=== PATIENT | female | born 1960 | race Asian ===

== ENCOUNTER 2019-09-12 18:18 | Emergency (ER) | payer OTHER, SELFPAY ==
[2019-09-12 18:26] VITALS: BP 145/84; PULSE 77; RESP 18; TEMP 36.9; O2SAT 99
--- NOTE | 2019-09-12 18:27 | DI.RAD.S_ITS ---
PROCEDURE: XR KNEE LT 3V INDICATIONS: knee pain, swelling TECHNIQUE: 3 views of the knee were acquired. COMPARISON: None. FINDINGS: Bones: No fractures or dislocations. No suspicious bony lesions. There is mild medial femorotibial joint space narrowing seen, with associated remodeling changes including subchondral sclerosis and osteophyte formation along the jointline. Osteophyte formation can be seen along the margins of the patella. Soft tissues: There is a small joint effusion. No suspicious soft tissue calcifications. IMPRESSION: Small joint effusion. No focal bony abnormality is seen. If there is strong clinical suspicion for internal derangement of this joint, please consider a scheduled MRI for further evaluation (assuming that there is no contraindication to MRI). Dictated by: Martin Parmar M.D. on 09/12/2019 at 17:49 Approved by: Martin Parmar M.D. on 09/12/2019 at 17:49
--- NOTE | 2019-09-12 18:31 | ED_ITS ---
HPI - Extremity Problem General Chief complaint: Extremity Problem,Nontraumatic Stated complaint: left knee pain Time Seen by Provider: 09/12/19 18:19 Source: patient Mode of arrival: Family Vehicle Limitations: no limitations History of Present Illness HPI Narrative: 58-year-old female nonsmoker with noncontributory medical history presents by herself with a chief complaint of ongoing left knee pain since Saturday. She denies any specific injury such as twisting or falling. She denies any overuse scenario. She denies any fever or chills nor redness. She denies any ankle or hip pain. She denies any history of the same. Patient denies any numbness, tingling or weakness MD Complaint: extremity pain and joint swelling Onset (ago): day(s) Pain Consistency: constant Location: left Quality: aching Radiation: none Relieving factors: rest Exacerbating factors: weight bearing and walking Associated symptoms: denies other symptoms Related Data Allergies Allergy/AdvReac Type Severity Reaction Status Date / Time No Known Drug Allergies Allergy Verified 09/12/19 18:30 Review of Systems Constitutional Constitutional: Denies chills, Denies fatigue, Denies fever(s), Denies frequent falls, Denies lethargy and Denies weakness Eyes Eyes: Denies change in vision, Denies eye discharge, Denies irritation and Denies loss of vision ENT Ears, Nose, Mouth, and Throat: Denies change in voice, Denies dizziness, Denies neck pain, Denies sore throat and Denies throat swelling Cardiovascular Cardiovascular: Denies chest pain, Denies irregular heart rhythm, Denies lightheadedness, Denies palpitations, Denies dyspnea, Denies dyspnea on exertion and Denies orthopnea Respiratory Respiratory: Denies cough, Denies dyspnea, Denies dyspnea on exertion and Denies wheezing Gastrointestinal Gastrointestinal: Denies abdominal pain, Denies change in bowel habits, Denies diarrhea, Denies nausea and Denies vomiting Genitourinary Genitourinary: Denies hematuria, Denies flank pain, Denies urinary incontinence and Denies urinary urgency Musculoskeletal Musculoskeletal: Denies back pain, Reports limited range of motion, Denies muscle weakness, Denies neck pain, Denies numbness and Denies tingling Integumentary/Breasts Skin/Breast: Denies pruritus, Denies erythema, Denies rash and Denies wounds Neurologic Neurologic: Denies behavioral changes, Denies confusion, Denies dizziness, Denies frequent falls, Denies loss of vision, Denies numbness, Denies tingling and Denies weakness Psychiatric Psychiatric: Denies anxiety, Denies behavioral changes, Denies confusion, Denies depression, Denies homicidal ideation and Denies suicidal ideation Endocrine Endocrine: Denies fatigue, Denies flushing and Denies palpitations Hematologic/Lymphatic Hematologic/Lymphatic: Denies easy bruising Allergic/Immunologic Allergic/Immunologic: Denies urticaria, Denies throat swelling and Denies wheezing Patient History Social History Smoking Status: Never smoker alcohol intake frequency: 0-2 drinks per day Substance Use Type: does not use Exam Narrative Exam Narrative: GEN: AOx3 and in mild distress, 58-year-old female appears stated age EYES: Pupils are equal, round, and reactive to light and accommodation. Extraoccular muscles are intact bilaterally. There is no subconjunctival hemorrhage or exudate. CHEST: Lungs are clear to auscultation bilaterally and free of wheezes, rales, or rhonchi. Heart rate is regular rhythm, there are no murmurs, clicks, rubs, or gallops. There is no chest wall tenderness. ABD: Abdomen is soft and nontender. There is no guarding or rebound. Bowel sounds are normal in all 4 quadrants. There is no mass or organomegaly. EXT: Full but painful range of motion of left knee. Small effusion, no redness, warmth. No pain with passive range of motion. No bony point tenderness. No numbness, tingling or weakness SKIN: Warm, pink, and dry. No erythema or rash Initial Vital Signs Initial Vital Signs: Vital Signs Temperature 98.4 F 09/12/19 18:26 Pulse Rate 77 09/12/19 18:26 Respiratory Rate 18 09/12/19 18:26 Blood Pressure 145/84 H 09/12/19 18:26 Pulse Oximetry 99 09/12/19 18:26 Procedures Orthopedic Splinting/Casting Injury #1: Side: left Lower Extremity Immobilizer: Chris wrap Post splinting neuro exam: intact Post splinting vascular exam: intact Placed by: Nursing Course Orders Ordered: ED Orders 09/12/19 18:27 XR knee LT 3V Stat Vital Signs Vital signs: Vital Signs - 8 hr 09/12/19 18:26 Temperature 98.4 F Pulse Rate 77 Respiratory Rate 18 Blood Pressure 145/84 H Pulse Oximetry 99 MDM - Extremity (Nontraumatic) Imaging Data Knee Xray: Attestation: I personally reviewed and interpreted this imaging study as follows: My impression: No tom abnormality Radiologist's impression: [address] [address] XRay Report Signed Patient: Louisa Rivera#: [id number] : 1960Acct:[id number] Age/Sex: 58 / FDate of Service: 09/12/19 Loc: ED Accession Number: [id number] Procedure: XR knee LT 3V Ordering Provider: Prem Goodson D.O. PROCEDURE: XR KNEE LT 3V INDICATIONS: knee pain, swelling TECHNIQUE: 3 views of the knee were acquired. COMPARISON: None. FINDINGS: Bones: No fractures or dislocations. No suspicious bony lesions. There is mild medial femorotibial joint space narrowing seen, with associated remodeling changes including subchondral sclerosis and osteophyte formation along the jointline. Osteophyte formation can be seen along the margins of the patella. Soft tissues: There is a small joint effusion. No suspicious soft tissue calcifications. IMPRESSION: Small joint effusion. No focal bony abnormality is seen. If there is strong clinical suspicion for internal derangement of this joint, please consider a scheduled MRI for further evaluation (assuming that there is no contraindication to MRI). Dictated by: Martin Parmar M.D. on 09/12/2019 at 17:49 Approved by: Martin Parmar M.D. on 09/12/2019 at 17:49 Discharge Plan Departure Patient Disposition: Home Clinical Impression: Acute knee pain Qualifiers: Laterality: left Qualified Code(s): M25.562 - Pain in left knee Discharge Date/Time: 09/12/19 19:28 Instructions: DI for Knee Pain Activity Restrictions/Additional Instructions: *You have been diagnosed with [acute left knee pain] *What to do: *Take medications as directed: Anti-inflammatories such as ibuprofen or Naprosyn and Tylenol for pain *Follow up with your primary care provider in 2-3 days, call for an appointment. Let them know you were seen in the Emergency Department and that we ask that you be seen in follow up *Return to ER if you should have any new, worsening or concerning symptoms, such as [increasing pain, redness, warmth to the touch, inability to flex the knee without excruciating pain or other bothersome symptoms]
== END 2019-09-12 19:28 | disposition home or self-care (01) ==
PROVIDERS: Emergency Provider Emergency Medicine
DX: M25.562 Pain in left knee (principal)
CPT/HCPCS: 29530; 73562; 99283